=== PATIENT | male | born 1950 | race Caucasian/White ===

== ENCOUNTER → 2018-02-20 | Outpatient (CLI) | payer MEDICARE, OTHER ==
[~2018-02-20] MED LIST: ASP325 PO; ASPI-715 PO; CEP500 PO; CHOL500045 PO; DICL100G39 TOP; DILT120C33 PO; ENOX80DI8 SQ; ESOM40CA42 PO; ESZ2 PO; ESZO3TAB37 PO; FLEC150T14 PO; LEV500 PO; LEVO125T77 PO; LEVO175T42 PO; LISI2.5T60 PO; METO-1 PO; METO-259 PO; MIR PO; RAMI2.5C42 PO; WAR5 PO; WAR75 PO; WARF10TA29 PO; [UNRECOGNIZED DRUG - CODE] PO
--- NOTE | 2018-02-20 09:07 | RADIOLOGY IMAGING REPORT ---
FACILITY: [facility] PATIENT NAME: Anthony Morocho : 1950 MR: [id number] V: [id number] EXAM DATE: ORDERING PHYSICIAN: ANASTASIA ALMEIDA TECHNOLOGIST: [place] [facility] [place] Anthony Morocho : 1950 Visit/Account:[id number] Date of Sevice: 02/20/2018 Right knee with standing, three views, and left knee with standing, one view. HISTORY: Right knee pain. COMPARISON: None. Mild spurring is present along the intercondylar tibial eminences bilaterally. Minimal joint space n arrowing is present in the medial and lateral compartments bilaterally. Small marginal osteophytes a nd moderate to severe joint space narrowing are present in the right patellofemoral compartment. No right joint effusion. A probable fabella is present posteriorly in the right. No acute fractures. IMPRESSION: Bilateral osteoarthritis which is most severe in the right patellofemoral compartment. Report Dictated By: Jerzy Malone MD at 02/20/2018 9:01 AM Report E-Signed By: Jerzy Malone MD at 02/20/2018 9:04 AM WSN:[email or web address]
--- NOTE | 2018-02-20 09:08 | RADIOLOGY IMAGING REPORT ---
FACILITY: [facility] - [place] PATIENT NAME: Anthony Morocho : 1950 MR: [id number] V: [id number] EXAM DATE: ORDERING PHYSICIAN: ANASTASIA ALMEIDA TECHNOLOGIST: Location: [facility] Patient: Anthony Morocho : 1950 Visit/Account:[id number] Date of Sevice: 02/20/2018 Right knee with standing, three views, and left knee with standing, one view. HISTORY: Right knee pain. COMPARISON: None. Mild spurring is present along the intercondylar tibial eminences bilaterally. Minimal joint space n arrowing is present in the medial and lateral compartments bilaterally. Small marginal osteophytes a nd moderate to severe joint space narrowing are present in the right patellofemoral compartment. No right joint effusion. A probable fabella is present posteriorly in the right. No acute fractures. IMPRESSION: Bilateral osteoarthritis which is most severe in the right patellofemoral compartment. Report Dictated By: Jerzy Malone MD at 02/20/2018 9:01 AM Report E-Signed By: Jerzy Malone MD at 02/20/2018 9:04 AM WSN:[email or web address]
== END ==
LOC: RAD 08:01
PROVIDERS: ATTEND Internal Medicine
DX: M17.0 Bilateral primary osteoarthritis of knee (principal)
CPT/HCPCS: 73565

== ENCOUNTER → 2018-04-18 | Outpatient (CLI) | payer MEDICARE, OTHER ==
--- NOTE | 2018-04-18 12:45 | RADIOLOGY IMAGING REPORT ---
FACILITY: [facility] [place] PATIENT NAME: Anthony Morocho : 1950 MR: [id number] V: [id number] EXAM DATE: ORDERING PHYSICIAN: DIANE BEARD TECHNOLOGIST: Location: [facility] - [place] Patient: Anthony Morocho : 1950 Visit/Account:[id number] Date of Sevice: 04/18/2018 Renal ultrasound Indication: Incomplete bladder emptying Comparison: None available Findings: Right kidney measures 9.0 x 4.6 x 5.3 cm in cc, AP, and transverse dimensions respectively. Left kidney measures 9.6 x 4.9 x 4.9 cm in cc, AP, and transverse dimensions respectively. There is a simple appearing there is a small calcification within the 1.1 cm simple appearing cyst se en within the superior pole of the right kidney. There is also a tiny calcification within the mid l eft kidney noted. No evidence of hydronephrosis or nephrolithiasis. Bilateral ureteral jets were seen. Mild elevated left resistive index of 0.78. Urinary bladder is decompressed secondary to López catheter within urinary bladder.. Visualized abdominal aorta and IVC are unremarkable. IMPRESSION: 1. No hydronephrosis of either kidney. Report Dictated By: Jude Payne MD at 04/18/2018 12:38 PM Report E-Signed By: Jude Payne MD at 04/18/2018 12:41 PM WSN:[email or web address]
== END ==
LOC: US 03:40
PROVIDERS: ATTEND Urology
DX: N20.0 Calculus of kidney (principal); N28.1 Cyst of kidney, acquired; Z96.0 Presence of urogenital implants
CPT/HCPCS: 76705

== ENCOUNTER → 2018-04-29 | Outpatient (CLI) | payer MEDICARE, OTHER | LOC: LAB 09:49 | PROVIDERS: ATTEND Urology | DX: R33.8 Other retention of urine (principal); R97.20 Elevated prostate specific antigen [PSA] | CPT/HCPCS: 36415; 84154 ==

== ENCOUNTER → 2018-05-06 | Outpatient (REF) | payer MEDICARE, OTHER | LOC: ZZSENDIN 12:00 | PROVIDERS: ATTEND Orthopaedic Surgery Hand Surgery | DX: M71.342 Other bursal cyst, left hand (principal) | CPT/HCPCS: 88305 ==

== ENCOUNTER → 2018-05-14 | Outpatient (REF) | payer MEDICARE, OTHER | LOC: ZZSENDIN 12:00 | PROVIDERS: ATTEND Urology | DX: N41.1 Chronic prostatitis (principal); N42.89 Other specified disorders of prostate | CPT/HCPCS: 88305; 88344 ==

== ENCOUNTER 2018-07-16 07:21 | Emergency (ER) | payer MEDICARE, OTHER ==
[~2018-07-16 07:21] MED LIST changes: -RAMI2.5C42 PO; +RAMI2.5C43 PO
[2018-07-16] MEDS ORDERED: ASPIRIN 81 MG CHEW PO ONE (07:45)
--- NOTE | 2018-07-16 07:49 | ER Report ---
History and Physical Time Seen By MD: 07:35 Hx. of Stated Complaint: PT States he felt extra atrial beats in his throat area, onset last p.m., and is concerned for arrhythmia. Took diltiazem 60 mg PO at 0300. HPI/ROS CHIEF COMPLAINT: Palpitation HISTORY OF PRESENT ILLNESS: Patient is a 67-year-old male comes emergency Department with a sensation of palpitations patient has had atrial flutter in the past he had ablation in 2009 and ablation in 2011 comes to the emergency department increasing he felt a little bit of sensation in his throat and his ear describes it as kind of a rare L flutter sensation no chest pain or shortness of breath nausea vomiting diarrhea fever chills additional complaints isischemic cardiac history is a nonsmoker patient states that sometimes when his his trigger however he has not drink wine recently patient states that on arrival here he does not have a sensation I took his pulse radially and a pulse oximetry monitor and noted was a normal sinus both times however still had that sensation of dysrhythmia in his throat. Patient has no additional complaints at this time REVIEW OF SYSTEMS: Respiratory: No cough, no dyspnea. Cardiovascular: No chest pain has palpitation Gastrointestinal: No vomiting, no abdominal pain. Musculoskeletal: No back pain. Remainder of the 14 system rev: Yes Allergies: Coded Allergies: benzoin (Verified Allergy, Intermediate, RASH, 07/16/18) prochlorperazine (Verified Allergy, Intermediate, EXTRA-PARAMIDAL SYMPTOMS, 07/16/18) Home Meds Active Scripts Ramipril (RAMIPRIL) 2.5 Mg Capsule, 1 CAP PO QDAY, #90 CAPSULE 3 Refills Prov:ANASTASIA ALMEIDA MD 04/02/18 Levothyroxine Sodium (LEVOTHYROXINE SODIUM) 175 Mcg Tablet, 1 TAB PO QDAY, #90 TAB 3 Refills Prov:ANASTASIA ALMEIDA MD 03/15/18 Baicalin/Catechin (LIMBREL 500 MG CAPSULE) 500 Mg Capsule, 1 TAB PO BID, #180 CAPSULE 4 Refills Prov:ANASTASIA ALMEIDA MD 02/07/17 Diclofenac Sodium 1% Gel (VOLTAREN 1% GEL) 100 Gm Gel..gram., 1 DAVIE TOP BID PRN for for joint pain. , #1 TUBE 6 Refills Prov:ANASTASIA ALMEIDA MD 02/07/17 Reported Medications Cholecalciferol (Vitamin D3) (VITAMIN D) 5,000 Unit Tablet, 1 TAB PO QDAY, CAPSULE 01/31/16 Eszopiclone (LUNESTA) 2 Mg Tablet, 1 TAB PO HS PRN for sleeplessness 01/31/16 Reviewed Nurses Notes: Yes Old Medical Records Reviewed: Yes Hx Smoking: No Smoking Status: Never Smoker Exposure to Second Hand Smoke?: Yes Hx Substance Use Disorder: No Hx Alcohol Use: No Constitutional Vital Sign - Last 24 Hours 07/16/18 07:36 Pulse 70 Resp 16 B/P (MAP) 188/99 Pulse Ox 98 O2 Delivery Room Air Physical Exam General Appearance: The patient is alert, has no immediate need for airway protection and no current signs of toxicity. [ ] Eyes: Pupils equal and round no injection. Respiratory: Chest is non tender, lungs are clear to auscultation. Cardiac: regular rate and rhythm [ ] Gastrointestinal: Abdomen is soft and non tender, no masses, bowel sounds normal . Musculoskeletal: Neck: Neck is supple and non tender. Extremities have full range of motion and are non tender. Skin: No rashes or lesions. [ ] DIFFERENTIAL DIAGNOSIS: After history and physical exam differential diagnosis was considered for atrial fib atrial flutter myocardial ischemia pulmonary emboli palpitations electrode abnormality Medical Decision Making Data Points Result Diagram: 07/16/18 0734 07/16/18 0734 Laboratory Hematology Test 07/16/18 07:34 Red Blood Count 5.11 M/uL (4.00-5.60) Mean Corpuscular Volume 95.3 fL (80.0-96.0) Mean Corpuscular Hemoglobin 32.4 pg (26.0-33.0) Mean Corpuscular Hemoglobin Concent 34.0 g/dL (32.0-36.0) Red Cell Distribution Width 12.8 % (11.5-14.5) Mean Platelet Volume 8.5 fL (7.2-11.1) Neutrophils (%) (Auto) 38.0 % (39.4-72.5) Lymphocytes (%) (Auto) 38.4 % (17.6-49.6) Monocytes (%) (Auto) 12.7 % (4.1-12.4) Eosinophils (%) (Auto) 9.7 % (0.4-6.7) Basophils (%) (Auto) 1.2 % (0.3-1.4) Nucleated RBC Relative Count (auto) 0.1 /100WBC Neutrophils # (Auto) 2.3 K/uL (2.0-7.4) Lymphocytes # (Auto) 2.3 K/uL (1.3-3.6) Monocytes # (Auto) 0.8 K/uL (0.3-1.0) Eosinophils # (Auto) 0.6 K/uL (0.0-0.5) Basophils # (Auto) 0.1 K/uL (0.0-0.1) Nucleated RBC Absolute Count (auto) 0.00 K/uL Peripheral Blood Smear No Y/N D-Dimer Quantitative (PE/DVT) 0.35 ug/ml (0-0.50) Sodium Level 140 mmol/L (137-145) Potassium Level 3.8 mmol/L (3.5-5.0) Chloride Level 102 mmol/L (98-107) Carbon Dioxide Level 26 mmol/L (22-30) Blood Urea Nitrogen 23 mg/dl (9-21) Creatinine 0.90 mg/dl (0.66-1.25) Glomerular Filtration Rate Calc > 60.0 Random Glucose 102 mg/dl (75-110) Calcium Level 9.4 mg/dl (8.4-10.2) Total Bilirubin 0.7 mg/dl (0.2-1.3) Aspartate Amino Transf (AST/SGOT) 51 U/L (0-35) Alanine Aminotransferase (ALT/SGPT) 64 U/L (0-56) Alkaline Phosphatase 85 U/L (0-126) Troponin I < 0.012 ng/ml Total Protein 7.9 g/dl (6.3-8.2) Albumin 4.6 g/dl (3.5-5.0) Serum Alcohol < 10 mg/dl Chemistry Test 07/16/18 07:34 White Blood Count 6.1 k/uL (4.5-11.0) Red Blood Count 5.11 M/uL (4.00-5.60) Hemoglobin 16.5 g/dL (14.0-18.0) Hematocrit 48.7 % (42.0-52.0) Mean Corpuscular Volume 95.3 fL (80.0-96.0) Mean Corpuscular Hemoglobin 32.4 pg (26.0-33.0) Mean Corpuscular Hemoglobin Concent 34.0 g/dL (32.0-36.0) Red Cell Distribution Width 12.8 % (11.5-14.5) Platelet Count 216 K/uL (150-450) Mean Platelet Volume 8.5 fL (7.2-11.1) Neutrophils (%) (Auto) 38.0 % (39.4-72.5) Lymphocytes (%) (Auto) 38.4 % (17.6-49.6) Monocytes (%) (Auto) 12.7 % (4.1-12.4) Eosinophils (%) (Auto) 9.7 % (0.4-6.7) Basophils (%) (Auto) 1.2 % (0.3-1.4) Nucleated RBC Relative Count (auto) 0.1 /100WBC Neutrophils # (Auto) 2.3 K/uL (2.0-7.4) Lymphocytes # (Auto) 2.3 K/uL (1.3-3.6) Monocytes # (Auto) 0.8 K/uL (0.3-1.0) Eosinophils # (Auto) 0.6 K/uL (0.0-0.5) Basophils # (Auto) 0.1 K/uL (0.0-0.1) Nucleated RBC Absolute Count (auto) 0.00 K/uL Peripheral Blood Smear No Y/N D-Dimer Quantitative (PE/DVT) 0.35 ug/ml (0-0.50) Glomerular Filtration Rate Calc > 60.0 Calcium Level 9.4 mg/dl (8.4-10.2) Total Bilirubin 0.7 mg/dl (0.2-1.3) Aspartate Amino Transf (AST/SGOT) 51 U/L (0-35) Alanine Aminotransferase (ALT/SGPT) 64 U/L (0-56) Alkaline Phosphatase 85 U/L (0-126) Troponin I < 0.012 ng/ml Total Protein 7.9 g/dl (6.3-8.2) Albumin 4.6 g/dl (3.5-5.0) Serum Alcohol < 10 mg/dl Coagulation Test 07/16/18 07:34 D-Dimer Quantitative (PE/DVT) 0.35 ug/ml Toxicology Test 07/16/18 07:34 Serum Alcohol < 10 mg/dl ED Course/Re-evaluation ED Course ED clinical course 67-year-old male comes emergency Department today with a sensation of palpitations in his throat EKG is unremarkable Baseline labs show prerenal azotemia and a slight bump in his LFTs but he noted that he's been taking multiple [id number] supplementation recently which could account for this I don't think this is alcohol induced by digging alcohol level just to verify in addition to that again is a letter lites were relatively unremarkable d-dimer was negative cardiac markers troponins also were negative chest x-ray s howed no cardiac abnormalities been completely asymptomatic and showed no abnormalities on the monitor throughout his stay. 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 if symptoms worsen an echo cardiogram I would be a good plan for the future as well as potentially carotid Dopplers I I see no indication keep him in the emergency department or admitted to the hospital with discharge diagnoses palpitations Decision to Disposition Date: Jul 16, 2018 Decision to Disposition Time: 08:48 Depart Departure Latest Vital Signs Vital Signs Date Time Temp Pulse Resp B/P (MAP) Pulse Ox O2 Delivery O2 Flow Rate FiO2 07/16/18 07:36 70 16 188/99 98 Room Air Impression: Primary Impression: Palpitations Condition: Improved Disposition: HOME OR SELF-CARE Referrals: ANASTASIA ALMEIDA MD (PCP) 5 Days Patient Instructions: Palpitations (DC) DOLLY JENKINS MD Jul 16, 2018 07:49
[2018-07-16 07:51] LABS: PLATELET COUNT, AUTOMATED 216 K/uL (150-450)
--- NOTE | 2018-07-16 07:56 | EKG ---
FACILITY: [facility] PATIENT NAME: EAGLE WATTS : [id number] MR: [id number] V: [id number] EXAM DATE: ORDERING PHYSICIAN: DOLLY JENKINS TECHNOLOGIST: MAX Lopez Reason : CARDIAC Blood Pressure : / mmHG Vent. Rate : 070 BPM Atrial Rate : 070 BPM P-R Int : 144 ms QRS Dur : 088 ms QT Int : 420 ms P-R-T Axes : 083 067 060 degrees QTc Int : 453 ms Normal sinus rhythm Nonspecific ST abnormality U waves are present Abnormal ECG No previous ECGs available Confirmed by APRIL IRAHETA ([id number]) on 07/16/2018 3:47:39 PM Referred By: ALICE Confirmed By:APRIL IRAHETA
[2018-07-16] MEDS ORDERED: NS(*) 0.9% 1000 ML BAG 1,000 ML IV ONE (08:20)
--- NOTE | 2018-07-16 08:28 | RADIOLOGY IMAGING REPORT ---
FACILITY: [facility] - [place] PATIENT NAME: Anthony Morocho : 1950 MR: [id number] V: [id number] EXAM DATE: ORDERING PHYSICIAN: DOLLY JENKINS TECHNOLOGIST: [place] [facility] [place] Anthony Moroch[place] : 1950 Visit/Account:[id number] Date of Sevice: 07/16/2018 Exam type: CHEST PA AND LAT History: Chest pain Comparison: August 25, 2011. Findings: The lungs are free of acute effusions, infiltrates or edema. There is no evidence of a pneumothorax or pneumomediastinum. The cardiac silhouette is normal in size. There are mild spondylotic changes of the thoracic spine and a mild compression fracture of an upper thoracic vertebral body that appear s stable when compared to the prior exam IMPRESSION: 1. No acute cardiopulmonary process is seen Report Dictated By: Katharine Palomo MD at 07/16/2018 8:22 AM Report E-Signed By: Katharine Palomo MD at 07/16/2018 8:24 AM WSN:[email or web address]
[2018-07-16 08:53] VITALS: BP 144/80
== END 2018-07-16 09:06 | disposition home or self-care (01) ==
LOC: ER 07:48
DX: R00.2 Palpitations (principal)
CPT/HCPCS: 71046; 84484; 85025; 85379; 93005; 99284; A9270; G0480; J7030; 80320; 82040; 82247; 82310; 82374; 82435; 82565; 82947; 84075; 84132; 84155; 84295; 84450; 84460; 84520

== ENCOUNTER 2018-09-01 02:31 | Day surgery (SDC) | payer MEDICARE, OTHER ==
--- NOTE | 2018-08-22 19:06 | HISTORY AND PHYSICAL ---
DATE OF ADMISSION: September 01, 2018 CHIEF COMPLAINT Elevated PSA with BPH and incomplete bladder emptying. HISTORY OF PRESENT ILLNESS Patient is a 67-year-old white male who originally was seen in the Urology Clinic in April with the complaint of an elevated PSA to 5.0 which had been performed in February. His PSA history dated back to 2008 when he had a PSA of 2.9. His next PSA was five years later in 2013 which was 4, and it has been relatively stable since that time until the one in February of this past year. When seen in the clinic, the patient also had some significant obstructive voiding symptoms and had a residual of 1250 mL. The patient was started on Flomax and CIC with bethanechol. He was having some difficulty with the catheterization causing some hematuria and, therefore, this was stopped. He is being currently managed with timed double voiding routine with Flomax and a Crede maneuver on the bladder to provide emptying. A renal ultrasound showed no hydronephrosis, and his creatinine has been normal. His PSA was repeated on the 29 of April, which had increased to 5.9. He also had a free PSA percentage of 14%. With these numbers, he underwent a transrectal ultrasound with biopsy in the office which revealed a 32 mL volume gland, and 12 cores were obtained. All were negative except for some atypia in the left lateral base. This was sent for second opinion to [facility], and they also agreed there was a small focus of atypical center proliferation on his left lateral base biopsy. Given the small area of atypia, he was informed he has an increased risk for cancer on a subsequent biopsy with a false negative rate as high as 40%. Options of other tests were discussed including ConfirmMDx, 4KScore, Prostate Health Index, PCA3, and multiparametric MRI. Dr. Morocho opted for the latter, and a multiparametric MRI was performed on the 11 of August. This was read as a PI-RADS 2 as the interpretation, and this was secondary to an area on the right posterolateral mid prostate of approximately 1 cm, consistent with hemorrhage. The area at the left lateral base also was normal. He is now being brought to the operating room for planned followup biopsy given his history of atypia and increasing PSA. Will also perform anesthetic cystoscopy given his history of difficulty with catheterization and elevated postvoid residuals. PAST MEDICAL HISTORY 1. 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 2. BPH. 3. History of AFib. 4. Gastroesophageal reflux disease. 5. Degenerative joint disease. 6. Hypertension. 7. History of malaria 2010 after travel to [facility]. PAST SURGICAL HISTORY 1. Tonsillectomy. 2. Cardiac ablation times two in 2009 and 2011. 3. Colonoscopy. 4. Right carpal tunnel surgery. 5. Right knee arthroscopy. 6. Removal of ganglion cyst. CURRENT MEDICATIONS 1. Voltaren gel. 2. Glucosamine. 3. Vitamin D. 4. Levothyroxine. 5. Ramipril. 6. Flomax. 7. Green tea extract. ALLERGIES No known drug allergies except to COMPAZINE and TOPICAL BENZOIN. 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 He is and lives in [place], [place]. He denies tobacco or illicit drug use. FAMILY HISTORY Noncontributory. REVIEW OF SYSTEMS He denies chest pain, shortness of breath, productive cough, fever, chills, liver disease, bleeding disorder, change in bowel habits. PHYSICAL EXAMINATION GENERAL: Patient is a well-developed, well-nourished, white male in no acute distress. HEENT: Normocephalic, atraumatic. CHEST: Clear to auscultation bilaterally. CARDIOVASCULAR: Regular rate and rhythm. ABDOMINAL: Soft, nontender. No masses are palpated. GENITOURINARY: Deferred to the OR. EXTREMITIES: Without clubbing, cyanosis, or edema. NEUROLOGIC: Nonfocal. IMPRESSION A 67-year-old white male with history of benign prostatic hypertrophy with elevated postvoid residuals and elevated PSA. He has had a biopsy which showed a small area of atypia on the left lateral base and a followup multiparametric MRI which was read as a Prostate Imaging and Reporting Data System (PI-RADS) 2 at the right mid posterolateral area consistent with a hemorrhage. PLAN Will perform an anesthetic cystoscopy, followed by transrectal ultrasound-guided prostate biopsy. CHETAN
[2018-08-27 08:04] LABS: PLATELET COUNT, AUTOMATED 289 K/uL (150-450)
[~2018-09-01] VITALS: Ht 180.3 cm; Wt 73.9 kg
[~2018-09-01 02:31] MED LIST changes: +EPIG1POW MC; +OMEG-108 PO; +TAMS0.4C25 PO; +[UNRECOGNIZED DRUG - CODE] PO
[2018-09-01] MEDS ORDERED: FAMOTIDINE 20 MG TAB PO ONE (06:00)
[2018-09-01 09:23] VITALS: BP 160/82
[2018-09-01] MEDS ORDERED: METOCLOPRAMIDE 10 MG/2 ML SDV ONE (09:37)
[2018-09-01] MEDS ORDERED: PROPOFOL EMUL(*) 10MG/ML 20 ML 20 ML ONE (09:37)
[2018-09-01] MEDS ORDERED: ONDANSETRON 4 MG/2 ML VIAL ONE (09:37)
[2018-09-01] MEDS ORDERED: DEXAMETHASONE SOD 4 MG/ML VIAL ONE (09:37)
[2018-09-01] MEDS ORDERED: LIDOCAINE MPF 1% 5 ML VIAL ONE (09:37)
[2018-09-01] MEDS ORDERED: fentaNYL CITR 100 MCG/2 ML AMP ONE (09:39)
[2018-09-01] MEDS ORDERED: FAMOTIDINE 20 MG/50 ML PREMIX IVPB ONE (10:00)
[2018-09-01] MEDS ORDERED: LEVOFLOXACIN/D5W*500 MG/100 ML 100 ML IVPB ONE (10:00)
[2018-09-01] MEDS ORDERED: MIDAZOLAM 2 MG/2 ML VIAL IVP PRN (10:00)
[2018-09-01] MEDS ORDERED: LIDOCAINE/SOD BICARB 8.4% SYR ID ONE (10:00)
[2018-09-01] MEDS ORDERED: IMIPENEM/CILASTA(*) 500MG VIAL 500 MG in NS(*) 0.9% 100 ML BAG 100 ML IVPB ONE (10:00)
[2018-09-01] MEDS ORDERED: NORMOSOL R SOLN(*) 1000 ML BAG 1,000 ML IV PRN (10:00)
[2018-09-01] MEDS ORDERED: KETOROLAC 30 MG/ML VIAL ONE (11:20)
[2018-09-01] MEDS ORDERED: LEVO-85 PO (12:17)
[2018-09-01 12:38] VITALS: BP 128/84
[2018-09-01 12:52] VITALS: BP 140/82
[2018-09-01 12:57] VITALS: BP 122/98
--- NOTE | 2018-09-01 13:47 | RADIOLOGY IMAGING REPORT ---
FACILITY: [facility] PATIENT NAME: Anthony Morocho : 1950 MR: [id number] V: [id number] EXAM DATE: ORDERING PHYSICIAN: DIANE GAGNON TECHNOLOGIST: Location: [facility] - [place] Patient: Anthony Morocho : 1950 Visit/Account:[id number] Date of Sevice: 09/01/2018 Exam type: PROSTATE BIOPSY History: Elevated PSA Comparison: None. Findings: Prostate biopsy was performed by Dr. Gagnon. Sonographic assistance was provided. Please see Dr. Juan Ramon long's notes for complete details IMPRESSION: 1. As above Report Dictated By: Katharine Palomo MD at 09/01/2018 1:41 PM Report E-Signed By: Katharine Palomo MD at 09/01/2018 1:42 PM WSN:[email or web address]
--- NOTE | 2018-09-01 14:29 | OPERATIVE REPORT 1 ---
EVENT DATE: September 01, 2018 SURGEON: Joaquin Gagnon MD ANESTHESIOLOGIST: Lane Burrell MD ANESTHESIA: General. PREOPERATIVE DIAGNOSES 1. Elevated PSA. 2. Elevated postvoid residual. POSTOPERATIVE DIAGNOSES 1. Elevated PSA. 2. Elevated postvoid residual. PROCEDURE PERFORMED 1. Cystoscopy. 2. Transrectal ultrasound of prostate. 3. Prostate needle biopsy x36. 4. Transrectal ultrasound guidance for transrectal prostate biopsy. ESTIMATED BLOOD LOSS 10] cc. IV FLUIDS Crystalloid. DRAINS 18-South African 3-way López catheter. PATHOLOGY 36 cores sent in 12 separate containers marked right and left, medial lateral and base mid apex. FINDINGS 1. Elevated bladder neck with small blinding passage at right mid prostate approximately 7 o'clock position consistent with healed area from catheter trauma. 2. 2+ large volume trabeculated bladder. 3. 26 cc volume prostate. COMPLICATIONS None. CONDITION The patient was taken to recovery room awake and in stable condition. STATEMENT OF MEDICAL NECESSITY Dr. Morocho is a 67-year-old white male who was originally seen in the Urology Clinic in April with elevated PSA of 5 and was found to have elevated postvoid residual. He subsequent has undergone one biopsy in the office which did show some mild atypia on the left lateral biopsy. His followup PSA was 5.9 at the end of April with a free PSA percentage of 14%. A multiparametric MRI was performed which was read normal as a PI-RADS 2. Given his residual, he was originally started on CIC but had some difficult catheterization with what appeared to be more resistant at the prostate and noted to have some blood with catheter use. DESCRIPTION OF OPERATION PERFORMED The patient was brought to the operating room after general anesthetic was obtained. He was placed in the dorsal lithotomy position and prepped and draped in the usual sterile manner. Anesthetic cystoscopy was performed with the 17- South African ACMI sheath and both 30 and 70-degree lenses. He was noted to have a normal pendulous bulbar membranous urethra. Upon entering his prostate, the verumontanum was normal. He had an elevated bladder neck. On the right side at the mid prostate at approximately 7 o'clock there was a small blinding passage very short in length but appeared to be the area that was causing some difficulty with catheterization given the elevation of bladder neck and the mild undermining of this area. It was well-healed. There was no evidence of stricture or bladder neck contracture in the remaining of the prostate. He had mildly moderate enlarged lateral lobes. Upon entering his bladder, he had a 2+ trabeculated bladder. There were no bladder tumors. He had a large volume. He had slit-like ureteral orifices, both effluxing clear urine. At this point, veterans service representative images were obtained in the bladder, prostate and urethra. The scope was then removed and transrectal ultrasound biopsy was performed. First, a digital rectal exam was performed, which revealed a normal sphincter tone, empty vault and approximately 30 cc volume prostate without nodularity. The Endfire ultrasound was introduced into patient's rectum atraumatically and Real- Time prostatic ultrasound was performed in two planes under real-time imaging. There was no evidence of significant hypoechoic areas identified. The prostate measured at 26 cc's. At this point, the prostatic ultrasound needle guide was placed on the screen and used for ultrasound guidance during the biopsy. A biopsy needle was used. A total of three biopsies were performed at each area, starting at the right lateral base and proceeding to the medial aspect on the right side of the base and then going lateral medial in the mid and lateral medial in the apex. Following this, the left side was done in a similar manner. A total of 36 separate biopsies were placed in the 12 biopsy containers and sent to pathology for permanent analysis. Following this, the ultrasound probe was removed. He was re-prepped and an 18-South African Coude López catheter was placed with 10 cc's of water in the balloon. This was placed to gravity drainage. He was awakened in the operating room and taken to the recovery area in stable condition. PLAN The plan will be to allow Dr. Morocho to be discharged home today with his López catheter at drainage. He will remove it at home in the morning and attempt a voiding trial. He is also to continue Levaquin for two more days and return to the clinic in a week or two to review his pathology results and discuss further treatment. CHETAN
== END 2018-09-01 12:38 | disposition home or self-care (01) ==
LOC: OR 02:31
PROVIDERS: ATTEND Urology
DX: C61 Malignant neoplasm of prostate (principal); N41.0 Acute prostatitis; E06.3 Autoimmune thyroiditis; N40.0 Benign prostatic hyperplasia without lower urinary tract symptoms; I48.2 Chronic atrial fibrillation; K21.9 Gastro-esophageal reflux disease without esophagitis; I10 Essential (primary) hypertension
CPT/HCPCS: 55700; 76872; 76942; 81001; 84153; 85025; 87088; 88305; 88344; A4338; A9270; C1758; J1100; J1885; J1956; J2001; J2405; J2704; J2765; J3010; 82040; 82247; 82310; 82374; 82435; 82565; 82947; 84075; 84132; 84155; 84295; 84450; 84460; 84520

== ENCOUNTER 2019-05-14 01:17 | Day surgery (SDC) | payer MEDICARE, OTHER ==
[2019-05-11 16:27] LABS: PLATELET COUNT, AUTOMATED 238 K/uL (150-450)
--- NOTE | 2019-05-11 16:36 | EKG ---
FACILITY: [facility] - [place] PATIENT NAME: EAGLE WATTS : [id number] MR: [id number] V: [id number] EXAM DATE: ORDERING PHYSICIAN: DIANE BEARD TECHNOLOGIST: MAX Lopez Reason : PREOP Blood Pressure : / mmHG Vent. Rate : 063 BPM Atrial Rate : 063 BPM P-R Int : 120 ms QRS Dur : 094 ms QT Int : 424 ms P-R-T Axes : 068 068 048 degrees QTc Int : 433 ms Normal sinus rhythm Normal ECG When compared with ECG of 16-JUL-2018 07:36, Nonspecific T wave abnormality no longer evident in Inferior leads Confirmed by LOYDA SIDDIQUI ([id number]) on 05/11/2019 6:18:27 PM Referred By: KISHA Confirmed By:LOYDA SIDDIQUI
--- NOTE | 2019-05-12 21:23 | HISTORY AND PHYSICAL ---
DATE OF ADMISSION: May 14, 2019 CHIEF COMPLAINT BPH with chronic urinary retention and history of prostate cancer, status post HIFU treatment. 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 At that time, he stated he had a decrease of forced stream and often had to coude to empty his bladder. He was found to have an elevated postvoid residual of greater than 1200 mL and was started on CIC as well as Flomax twice a day. He subsequently underwent a prostatic ultrasound and was diagnosed with a low volume prostate cancer in August 2018. He subsequently sought treatment at the [facility] in [place] and underwent HIFU therapy on the right lateral and right central area of the prostate. He has stopped the CIC for several months and is currently voiding with a slow stream, but does not have any incontinence or hematuria. Workup in the past with a cystoscopy showed he did have a small false passage in the prostatic urethra secondary to a CIC trauma. His bladder neck was mildly elevated at that time. His current PSA is down to 1.4, and he is otherwise stable from a urologic standpoint. Options were discussed to have him voiding more to completion. Standard treatment would be a transurethral resection of prostate or photovaporization. Rashawn is concerned about permanent ejaculatory dysfunction as well as small risk of incontinence and bladder neck contracture or other scar tissue. The fact that he has had a HIFU might impact the healing of the prostate as well. Other options were explained including UroLift and the main advantage being a minimally invasive procedure which may provide enough relief of his obstruction to get him to spontaneously void much better. His workup has included a recent transrectal ultrasound, which revealed him to have a 20 cc volume prostate. However, it was significantly asymmetric on imaging with the right side being smaller than the left. The urethra to capsular distance at one third up the urethra was 19 at the base on the left and 13 mm at the base on the right. At the apex, it was 19 on the left and 11 on the right. This is consistent with his HIFU treatment on that side. Cystoscopy revealed a mild apical prostatic urethral stricture which was approximately 16-Swedish in size. I was able to kind of pop the scope through for the rest of the evaluation. He did have some what appeared to be devitalized mucosa on the right side next to the apex. The entire left side and right base appeared normal. His bladder was 3+ trabeculated and was without lesions. We now plan UroLift procedure. PAST MEDICAL HISTORY 1. Philipp thyroiditis. 2. AFib. 3. BPH. 4. Prostate cancer. 5. Gastroesophageal reflux disease. 6. Degenerative joint disease. 7. Hypertension. 8. History of malaria. PAST SURGICAL HISTORY 1. AFib ablation times two. 2. Tonsillectomy. 3. Colonoscopy. 4. Right carpal tunnel release. 5. Left knee arthroscopy. 6. Removal of a ganglion cyst on wrist. 7. Transrectal ultrasound biopsy of prostate. 8. HIFU of the right lateral and central zones. 9. Left wrist arthroscopy. ALLERGIES COMPAZINE. CURRENT MEDICATIONS 1. Multivitamins. 2. Levothyroxine. 3. Cialis. 4. Flomax. 5. Ramipril. FAMILY HISTORY Noncontributory. REVIEW OF SYSTEMS Patient denies chest pain, shortness of breath, bleeding disorder, liver disease, gross hematuria, productive cough, or chronic headaches. PHYSICAL EXAMINATION GENERAL: Patient is a well-developed, well-nourished white male in no acute distress. HEENT: Normocephalic, atraumatic. CHEST: Clear to auscultation bilaterally. CARDIOVASCULAR: Regular rate and rhythm. ABDOMEN: Soft, nontender. No masses are palpated. GENITOURINARY: Deferred to the OR. EXTREMITIES: Without clubbing, cyanosis, or edema. NEUROLOGIC: Nonfocal. IMPRESSION A 68-year-old white male with chronic urinary retention, now status post high- intensity focused ultrasound at the right apex and central zone. He is noted to have a mild apical prostatic stricture likely secondary to his recent high- intensity focused ultrasound treatment and some jagged-appearing mucosa on the right side. His ultrasound reveals asymmetric prostatic size with the left being slightly greater than right, consistent with his recent high-intensity focused ultrasound. He does have a mildly elevated bladder neck, but no significant median lobe. He is able to currently void without using clean intermittent catheterization, but carries around a residual of approximately 800 to 900 mL. Options were discussed, and he has elected to undergo a UroLift procedure in attempts to have him void with a better force of stream and more to completion. He also understands we may need to perform a urethral dilation given his history of prostatic urethral stricture. We may need to perform some debridement of the nonviable prostatic tissue on the right side as well. PLAN Will perform anesthetic cystoscopy, possible urethral dilation, debridement of nonviable tissue, and then placement of UroLift implants. Plan to place at least two at the base on the right and left sides and one on the left apex as well. [facility]
[~2019-05-14] VITALS: Ht 180.3 cm; Wt 73.5 kg
[~2019-05-14 01:17] MED LIST changes: +LEVO-85 PO; +TADA5TAB7 PO
[2019-05-14] MEDS ORDERED: PROPOFOL EMUL(*) 10MG/ML 20 ML 20 ML ONE (09:10)
[2019-05-14] MEDS ORDERED: DEXAMETHASONE SOD PHOS 10MG/ML ONE (09:10)
[2019-05-14] MEDS ORDERED: ONDANSETRON 4 MG/2 ML VIAL ONE (09:10)
[2019-05-14] MEDS ORDERED: fentaNYL CITR 100 MCG/2 ML AMP ONE (09:10)
[2019-05-14 09:11] VITALS: BP 159/81
[2019-05-14] MEDS ORDERED: ceFAZolin(*) 1 GM VIAL 1 GM in NS(*) 0.9% 100 ML MINI-BAG 100 ML IVPB ONE (09:35)
[2019-05-14] MEDS ORDERED: NORMOSOL R SOLN(*) 1000 ML BAG 1,000 ML IV PRN (09:35)
[2019-05-14] MEDS ORDERED: LIDOCAINE/SOD BICARB 8.4% SYR ID ONE (09:35)
[2019-05-14] MEDS ORDERED: MIDAZOLAM 2 MG/2 ML VIAL IVP PRN (09:35)
[2019-05-14] MEDS ORDERED: FAMOTIDINE 20 MG TAB PO ONE (09:35)
[2019-05-14] MEDS ORDERED: WATER FOR IRRIG,STERILE 3000ML IR ONE (10:28)
[2019-05-14] MEDS ORDERED: PHEN200T32 PO (10:57)
[2019-05-14] MEDS ORDERED: CIPR-344 PO (10:57)
[2019-05-14] MEDS ORDERED: METH4TAB66 PO (10:58)
[2019-05-14 11:24] VITALS: BP 142/79
--- NOTE | 2019-05-14 11:39 | NUR ---
1124 SBAR REPORT WAS RECEIVED FROM CHRISTOPHER OMALLEY. PATIENT ARRIVED ON 2 LITERS NASAL CANNULA. HE STATES HIS PAIN IS 1-2. HE HAS AN [address] THAT IS DRAINING PEACHY COLORED URINE WITH NO CLOTS. BOWEL SOUNDS ARE HYPERACTIVE. HE DENIES ANY NAUSEA AND IS DRINKING. 1131 PATIENT WAS MOVED TO ROOM AIR AND IS TOLERATING THIS WELL.
[2019-05-14 11:45] VITALS: BP 142/79
[2019-05-14 12:14] VITALS: BP 134/78
[2019-05-14 12:15] VITALS: BP 129/72
--- NOTE | 2019-05-14 12:30 | NUR ---
1152 FINISHED DC INSTRUCTIONS WITH PATIENT AND . THEY VERBALIZED UNDERSTANDING 1200 PATIENT WAS MOVED TO A LEG BAG CATHETER. HE STATES HE HAS WORN THESE BEFORE AND FEELS COMFORTABLE WEARING THIS 1212 PATIENT BEGAN GETTING DRESSED 1220 IV WAS DC'D WITH CATH INTACT PRESSURE DRESSING APPLIED 1230 PATIENT WAS AMBULATORY ON DISCHARGE. HE STATES HIS PAIN IS 1-2/10. HE HAS LIGHT PEACH COLORED URINE. THERE IS NO CLOTS AND IT HAS A SMALL AMOUNT OF SEDIMENT IN URINE. PATIENT DENIES ANY PAIN. HE WAS STABLE ON HIS FEET. SEE DISCHARGE ASSESSMENT.
--- NOTE | 2019-05-15 21:45 | OPERATIVE REPORT 1 ---
EVENT DATE: May 14, 2019 SURGEON: Joaquin Gagnon MD ANESTHESIOLOGIST: Ramiro Ball MD ANESTHESIA: General anesthetic. PREOPERATIVE DIAGNOSES 1. Benign prostatic hyperplasia with obstruction and lower urinary tract symptoms. 2. Chronic urinary retention. 3. History of prostate cancer, status post focal high-intensity focused ultrasound on right apex in the prostate. 4. Apical prostatic urethral stricture. POSTOPERATIVE DIAGNOSES 1. Benign prostatic hyperplasia with obstruction and lower urinary tract symptoms. 2. Chronic urinary retention. 3. History of prostate cancer, status post local high-intensity focused ultrasound on right apex in the prostate. 4. Mild apical prostatic urethral stricture. PROCEDURES PERFORMED 1. Cystoscopy. 2. UroLift transprostatic urethral implants times six; a total of five on the left, with two stacked at both proximal and distal and one mid prostate, and on the right at proximal. ESTIMATED BLOOD LOSS Minimal. INTRAVENOUS FLUIDS Crystalloids. DRAINS 18-Greenlandic coude catheter. PATHOLOGY None. COMPLICATIONS None. CONDITION Patient taken to recovery room awake, in stable condition. 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 He was also noted to have an elevated PSA. He subsequently underwent biopsy and was found to have a localized right apical cancer. He underwent HIFU treatment with a focal technique to the right apex approximately six months at the [facility] in [place]. He has continued to have obstructive voiding symptoms and now is carrying a residual of approximately 500 to 800 mL and mainly voiding with coude type maneuvers. His current workup shows a PSA of 1.4. Ultrasound of his prostate revealed a 20 mL volume prostate with the right side significantly smaller than the left. He had no median lobe or intraprostatic protrusion of his prostate on ultrasound. Flexible cystoscopy revealed a mildly elevated bladder neck. He did have a mild to moderate apical prostatic urethral stricture, for which I was able to pop the 16-Greenlandic scope through. From approximately the prostatic apex up two thirds, he had some shaggy prostatic mucosa on the right side, which appeared to be devitalized tissue consistent with with a healing HIFU procedure. The one third area of his prostate urethra on the right side appeared normal. His bladder was 3+ trabeculated. He is currently on Flomax with continued symptoms. He has an AUA Symptom Score of 28, flow rate of approximately 5, and his residual last was approximately 800. Options were discussed, and he has elected to undergo a UroLift procedure in an attempt to aid in voiding. We also had an extensive discussion concerning his apical prostatic urethral stricture with likely recurrence or persistence which could complicate his recovery and long-term results. He is interested in the UroLift given it is a minimally invasive procedure and ability to preserve sexual function. DESCRIPTION OF PROCEDURE PERFORMED Patient was brought to the operating room, and after general anesthetic was obtained, he was placed in the dorsal lithotomy position and prepped and draped in the usual sterile manner. Anesthetic cystoscopy was performed with the 20- Greenlandic cystoscopic sheath and zero-degree lens. The patient had normal pendulous, bulbar, and membranous urethra. Just entering his prostatic urethra, the verumontanum and the distal to mid prostate was whitish in color and shaggy in appearance, consistent with his HIFU. The apical stricture was still present, but appeared to be no worse than before, and I was able to fairly easily pass the 20-Greenlandic scope through this area. His bladder neck was mildly elevated. The scope was then advanced into the patient's bladder, which was 2 to 3+ trabeculated. At this point, the obturator was removed, and this was replaced with a UroLift delivery device. The first treatment was planned at the patient's left side approximately 1.5 cm distal to the bladder neck. The device was positioned on the anterior one third of the prostatic urethra from the roof to the floor and angled at approximately the 2 to 3 o'clock position. The delivery device was then used to compress the lateral lobe out laterally by obtaining approximately a 20-degree angle of the delivery device. After position was confirmed, the needle safety lock was released, and the blue trigger was depressed to deploy the needle containing the implant through the prostate outside the capsule. Following this, the barrera trigger lever was pressed to allow the needle to be retracted into the device, thereby delivering the capsular tab. The implant was then placed under tension to assure capsular seating and removal of the slack monofilament. The suture was confirmed to be under tension by keeping it against the edge of the keyhole closest to the cystoscopic view and in the center. The device was then angled slowly back toward the midline and advanced approximately 4 mm until the white line on the monofilament was identified in the center of the keyhole. At this point, the urethral release button was pressed to affix the urethral end of the implant to the monofilament and to cut the excess suture, thereby tailoring the size of the implant. At this point, the device was advanced back into the bladder. The delivery device was then removed and replaced with a new one inside the cystoscopic sheath. The same procedure was then performed on the patient's right side, again approximately 1.5 cm from the bladder neck and at the same location. This part of the prostate on the right side appeared normal with good normal-looking mucosa. Following this, another device was loaded, and the same procedure then performed out just proximal to the verumontanum on the patient's left side. The patient was then scoped with the obturator sheath. It was noted to have some persistent area of obstruction both proximally and distally. Therefore, two stacked implants were performed on the patient's right side just above the two prior implants. He was scoped again. There seemed to be some mildly obstructing prostate remaining in the mid, and therefore, one more implant was placed in the mid prostate on the patient's left side. Therefore, at the conclusion of the procedure, the patient had five implants on the right, two stacked proximally and distally and one in midline, and he had one on the right at the proximal prostate. Final cystoscopic views revealed an open anterior channel. There was no evidence of bleeding or other anomalies. At this point, the scope was removed. An 18-Greenlandic coude López catheter was placed and placed to gravity drainage. The patient was awakened in the operating room and taken to the recovery area in stable condition. PLAN The plan is to allow the patient to be discharged home with his López catheter. He is to remove the catheter by himself on the , in two days in the morning, and to try a voiding trial. He is to give me a call and report his results. He is continue his Flomax, and I will also send him home on three days of Cipro and Pyridium as needed. In addition, we will start him on a Medrol Dose-Grzegorz given his history of HIFU and likely significant inflammation. CHETAN
== END 2019-05-14 11:24 | disposition home or self-care (01) ==
LOC: OR 01:17
PROVIDERS: ATTEND Urology
DX: N40.1 Benign prostatic hyperplasia with lower urinary tract symptoms (principal); N42.89 Other specified disorders of prostate; Z85.46 Personal history of malignant neoplasm of prostate; I10 Essential (primary) hypertension
CPT/HCPCS: 36415; 52441; 52442; 81001; 84153; 85025; 87088; 93005; A9270; J0690; J1100; J2250; J2405; J2704; J3010; L8699; 82040; 82247; 82310; 82374; 82435; 82565; 82947; 84075; 84132; 84155; 84295; 84450; 84460; 84520